=== PATIENT | male | born 1985 | race Caucasian/White ===

== ENCOUNTER 2017-08-04 22:33 | Emergency (ER) | payer OTHER | END 2017-08-05 02:14 | disposition home or self-care (01) | LOC: FTE 22:33 | DX: H11.32 Conjunctival hemorrhage, left eye (principal) | CPT/HCPCS: 99282; Z7502 ==

== ENCOUNTER 2018-04-10 22:07 | Emergency (ER) | payer OTHER | END 2018-04-11 01:36 | disposition home or self-care (01) | LOC: FTE 04-11 01:36 | DX: L03.116 Cellulitis of left lower limb (principal) | CPT/HCPCS: 73610; 99283-25 ==